=== PATIENT | male | born 1970 | race Caucasian/White ===

== ENCOUNTER 2021-03-27 09:37 | Day surgery (SDC) | payer MEDICAID, SELFPAY ==
[~2021-03-27] VITALS: Ht 185.4 cm; Wt 127.0 kg
[~2021-03-27 09:37] MED LIST: DIPHENHYDRAMINE INJ 50 MG/ML VIAL ONE
[2021-03-27] MEDS ORDERED: methylPREDNISolone ACETATE 40 MG/ML IM ONE (09:38)
[2021-03-27] MEDS ORDERED: BUPIVACAINE /EPINEPHRINE/PF 0.25% 30 ML VIAL INJ ONE (09:38)
[2021-03-27] MEDS ORDERED: LIDOCAINE 2%, 20 ML MDV INJ ONE (09:38)
[2021-03-27] MEDS ORDERED: NS 1000 ML IV.SOLN IV ONE (09:38)
[2021-03-27] MEDS: MIDAZOLAM HCL 5 MG/5 ML VIAL ONE ×2 (11:46→11:50)
[2021-03-27 17:35] VITALS: BP_SYST 116
== END 2021-03-27 12:50 | disposition home or self-care (01) ==
LOC: SDS 09:37
PROVIDERS: ATTEND Internal Medicine
DX: M51.16 Intervertebral disc disorders with radiculopathy, lumbar region (principal); Z98.84 Bariatric surgery status; Z20.822 Contact with and (suspected) exposure to COVID-19
CPT/HCPCS: 36415; 62323; 87426; J1030; J1200; J2001; J2250; J3490; J7030; U0003 ×2; 76000

== ENCOUNTER 2021-05-14 10:00 | Outpatient (CLI) | payer MEDICAID, SELFPAY ==
[~2021-05-14] VITALS: Ht 185.4 cm; Wt 124.7 kg
[2021-05-15] MEDS ORDERED: MIDAZOLAM HCL 5 MG/5 ML VIAL ONE (08:44)
[2021-05-15] MEDS ORDERED: DIPHENHYDRAMINE INJ 50 MG/ML VIAL ONE (08:45)
[2021-05-15 18:01] VITALS: BP_SYST 114
== END 2021-05-14 11:00 | disposition home or self-care (01) ==
LOC: SLB 10:00 → SDS 05-15 07:33 → SMU 05-15 07:33 → EDSTATUS 05-15 09:30 → SMU 05-15 11:02 → SDS 05-15 11:03 → SMU 05-15 11:03 → SDS 05-15 18:28
PROVIDERS: ATTEND Internal Medicine
DX: Z01.812 Encounter for preprocedural laboratory examination (principal); Z20.822 Contact with and (suspected) exposure to COVID-19; M51.16 Intervertebral disc disorders with radiculopathy, lumbar region
CPT/HCPCS: 36415; J1200; J2250

== ENCOUNTER 2021-08-14 08:01 | Day surgery (SDC) | payer MEDICAID ==
[~2021-08-14] VITALS: Ht 185.4 cm; Wt 122.5 kg
[2021-08-14] MEDS ORDERED: DIPHENHYDRAMINE INJ 50 MG/ML VIAL ONE (09:04)
[2021-08-14] MEDS ORDERED: LIDOCAINE 2%, 20 ML MDV ONE (11:03)
[2021-08-14] MEDS ORDERED: methylPREDNISolone ACETATE 40 MG/ML ONE (11:03)
[2021-08-14] MEDS ORDERED: ISOVUE-300 (IOPAMIDOL) 100 ML INFUS..BTL IV ONE (11:03)
[2021-08-14] MEDS ORDERED: BUPIVACAINE /PF 0.25% 30 ML VIAL INJ ONE (11:03)
[2021-08-14] MEDS: MIDAZOLAM HCL 5 MG/5 ML VIAL ONE ×2 (11:09→11:12)
[2021-08-14 12:20] VITALS: BP_SYST 146
== END 2021-08-14 13:20 | disposition home or self-care (01) ==
LOC: SDS 08:01 → SMU 08:03 → SDS 13:20
PROVIDERS: ATTEND Internal Medicine
DX: M51.16 Intervertebral disc disorders with radiculopathy, lumbar region (principal); Z98.84 Bariatric surgery status; Z79.899 Other long term (current) drug therapy; Z20.822 Contact with and (suspected) exposure to COVID-19
CPT/HCPCS: 36415 ×2; 62323; 87426; J1030; J1200; J2001; J2250; J3490; Q9967; U0003; 76000